=== PATIENT | male | born 1970 | race Two or more races ===

== ENCOUNTER 2016-04-07 14:40 | Emergency (ER) | payer MEDICAID ==
[2016-04-07 15:02] VITALS: RESP 16
--- NOTE | 2016-04-07 15:35 | EDPHY ---
H & P Smoking Status: Never smoked Time Seen by Provider: 04/07/16 15:03 HPI/ROS: CHIEF COMPLAINT: Left knee injury HISTORY OF PRESENT ILLNESS: 45-year-old male presents to the emergency department by private vehicle with pain in his left knee. The patient states that he was jumping down from the porch and slipped on some ice and subsequently hyperextended his left knee. He now has diffuse pain with his left knee is unable to fully extend or fully flex his left knee without severe pain. He denies hitting his head or losing consciousness or any other injuries. ROS: Denies numbness or tingling in his toes, pain in the left ankle or hip. Denies head injury, neck or back pain. (Donna Bess) Past Medical/Surgical History: Orthopedic surgery (Donna Bess) Social History: Single. 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 (Donna Bess) Physical Exam: Left knee reveals no effusion. No abrasion, ecchymosis or other signs of trauma. Normal sensation to light touch with normal 2 point discrimination. Unable to fully extend his left knee secondary to pain. He is able to flex to about nearly 45 before he is limited by pain. He has pain with palpation diffusely to the anterior aspect of the left knee. Unable to assess ligament stability given his level of pain. Left ankle is nontender. Full range of motion of the left ankle. Full range of motion of the left hip. Left calf is nontender. Achilles tendon is intact. (Donna Bess) Constitutional: Initial Vital Signs Temperature (C) 37.1 C 04/07/16 14:59 Heart Rate 87 04/07/16 14:59 Respiratory Rate 16 04/07/16 14:59 Blood Pressure 119/83 H 04/07/16 14:59 O2 Sat (%) 93 04/07/16 14:59 O2 Delivery Mode Room Air Allergies/Adverse Reactions: No Known Allergies Allergy (Verified 04/07/16 14:59) Home Medications: Medication Instructions Recorded NK [No Known Home Meds] 04/07/16 MDM/Departure - MDM Diagnostics: X-rays of the left knee reveal no fractures. This is reviewed by myself the PAC system as well as by the radiologist. (Donna Bess) Procedures: Patient was placed in straight leg knee immobilizer and examined post application in good placement with normal [employer]. (Donna Bess) ED Course/Re-evaluation: 45-year-old male presents to the emergency department with left knee pain. X- rays reveal no fractures. He was placed in straight leg knee immobilizer and given orthopedic referral. (Donna Bess) Differential Diagnosis: Including but not limited to fracture, dislocation, contusion, sprain (Donna Bess) - Depart Disposition: Home, Routine, Self-Care Clinical Impression: Sprain of left knee Condition: Good Instructions: Knee Sprain (ED) Additional Instructions: Straight leg knee immobilizer for comfort and support. Ibuprofen 600 mg every 8 hours as needed for pain. Weightbear as tolerated. Return if you developed numbness or tingling in your toes, pain in left ankle or left calf, or if you feel worse in any way. Referrals: Alessandro Harris MD [Medical Doctor] - As per Instructions (Orthopedic surgeon on-call)
--- NOTE | 2016-04-07 15:47 | DX ---
Left knee 5 views History: Jumped off ledge, hyperextending the knee, pain. Comparison: None available. Findings: No fracture is identified. Alignment is normal. Bone mineralization is normal. There is no significant degenerative change. There is a tiny joint effusion. Impression: No acute osseous findings.
[2016-04-07 16:03] VITALS: BP 132/89; PULSE 82; TEMP 97.9; O2SAT 94
== END 2016-04-07 16:03 | disposition home or self-care (01) ==
DX: S83.92XA Sprain of unspecified site of left knee, initial encounter (principal); W18.49XA Other slipping, tripping and stumbling without falling, initial encounter; Y92.008 Other place in unspecified non-institutional (private) residence as the place of occurrence of the external cause; Y93.89 Activity, other specified; R07.9 Chest pain, unspecified; I10 Essential (primary) hypertension

== ENCOUNTER 2016-10-08 09:52 | Emergency (ER) | payer MEDICAID ==
[2016-10-08 09:55] VITALS: RESP 16
[2016-10-08] MEDS ORDERED: methylPREDNISolone SOD SUCC 125 MG/2 ML VIAL IVP ONE (10:11)
[2016-10-08] MEDS ORDERED: RANITIDINE 50 MG/2 ML VIAL IVP ONE (10:11)
--- NOTE | 2016-10-08 11:06 | EDPHY ---
H & P Time Seen by Provider: 10/08/16 10:11 HPI/ROS: HPI Wasp sting to right hand. 46-year-old male by private vehicle. He has an allergy to bee stings. He carries an EpiPen because of this. Was at work, doing construction maintenance. He was moving some pipes when several wasps flew out of 1 of the pipes and stung him in the right hand in [address]. He immediately administered his 300 mcg EpiPen to his right thigh. He came to the emergency department because of his previous allergies. He has not had any difficulty breathing, difficulty swallowing. No sensation of his throat swelling or closing. He complains of some mild swelling to his right hand. He is right- hand dominant. No other complaints. ROS: Constitutional: No fever, no chills. As above. Eyes: No discharge. No changes in vision. ENT: No sore throat. No nasal congestion or rhinorrhea. As above. Respiratory: No cough. No shortness of breath. Cardiac: No chest pain, no palpitations. Gastrointestinal: No abdominal pain, no vomiting, no diarrhea. Genitourinary: No hematuria. No dysuria or increased frequency with urination. Musculoskeletal: No back pain. As above. No neck pain. No myalgias or arthralgias. Skin: No rashes. Neurological: No headache. No focal weakness or altered sensation. Past medical history: Right knee surgery. As above. Social history: No alcohol. Nonsmoker. Physical Exam: General Appearance: Alert, no distress. This patient is responding to questions appropriately and in full sentences. This patient appears well- hydrated and well-nourished. Eyes: Pupils equal and round no pallor or injection. No lid edema, erythema or injection. No angioedema. ENT, Mouth: Mucous membranes are moist. The pharyngeal tissues are unremarkable. No edema or swelling. No asymmetry suggestive of abscess. No erythema or exudates. Respiratory: There are no retractions, lungs are clear to auscultation with good air movement bilaterally. Cardiovascular: Regular rate and rhythm. No murmur. Neurological: Motor sensory function is grossly intact. Cranial nerves are normal. Gait is normal. Skin: Warm and dry, no rashes. Examination of the right hand, no significant swelling or edema. Small sting armen on proximal radial aspect index finger and base of ring finger. No associated erythema or warmth. No ecchymosis. Right hand neurovascularly intact. Musculoskeletal: Neck is supple and nontender. Extremities are symmetrical. All joints range without pain or impingement. Psychiatric: No agitation. No depression. Database: EKG: Imaging: Procedures: Emergency department course: IV placed per triage. Patient administered 125 mg of IV Solu-Medrol, 50 mg of IV ranitidine and 50 mg of IV Benadryl. 11:05 a.m., patient re-evaluated. He is completely asymptomatic. Examination of his right hand is unremarkable. No swelling/edema. No erythema or discoloration. Repeat pharyngeal exam is normal. Repeat pulmonary exam normal. He feels comfortable going home and I feel he is safe for discharge. I will prescribe him a short course of oral steroids as well as continued antihistamines over the next couple of days. Return to emergency department precautions and follow-up in discussed with him. All of his questions were answered. He was discharged in good condition. Differential Diagnosis: The differential diagnosis on this patient includes but is not limited to insect bite, allergic reaction. Anaphylaxis, angioedema unlikely. This represents a partial list of diagnoses considered. These considerations are based on history, physical exam, past history, reassessment and diagnostic testing. Smoking Status: Never smoked Constitutional: Initial Vital Signs Temperature (C) 36.9 C 10/08/16 09:54 Heart Rate 91 10/08/16 09:54 Respiratory Rate 16 10/08/16 09:54 Blood Pressure 112/94 H 10/08/16 09:54 O2 Sat (%) 97 10/08/16 09:54 O2 Delivery Mode Room Air Allergies/Adverse Reactions: bee pollen Allergy (Verified 10/08/16 09:56) Home Medications: Medication Instructions Recorded Famotidine [Pepcid] 40 mg PO BID #12 tab 10/08/16 diphenhydrAMINE [Benadryl 50 MG 50 mg PO Q4 #7 cap 10/08/16 (*)] predniSONE [prednisone 20mg (RX)] 60 mg PO DAILY #9 tab 10/08/16 Medical Decision Making - Data Points Medications Given: Discontinued Medications Diphenhydramine HCl (Benadryl Injection) 50 mg IVP EDNOW ONE Stop: 10/08/16 10:12 Last Admin: 10/08/16 10:15 Dose: 50 mg Methylprednisolone Sodium Succinate (Solu-Medrol) 125 mg IVP EDNOW ONE Stop: 10/08/16 10:12 Last Admin: 10/08/16 10:15 Dose: 125 mg Ranitidine HCl (Zantac) 50 mg IVP EDNOW ONE Stop: 10/08/16 10:12 Last Admin: 10/08/16 10:15 Dose: 50 mg Departure - Departure Disposition: Home, Routine, Self-Care Clinical Impression: Wasp sting, Allergic reaction Condition: Good Instructions: Insect Bite or Sting (ED), General Allergic Reaction (ED) Additional Instructions: Read and follow provided instructions. Follow-up with your primary care physician tomorrow for re-evaluation as needed. Take medication as prescribed. Return to the emergency department for swelling of your right hand or discoloration in right hand, difficulty breathing, any sensation of swelling or tightness in throat or other serious concerns. Prescriptions: diphenhydrAMINE [Benadryl 50 MG (*)] 50 mg PO Q4 #7 cap Famotidine [Pepcid] 40 mg PO BID #12 tab predniSONE [prednisone 20mg (RX)] 60 mg PO DAILY #9 tab
[2016-10-08 11:55] VITALS: BP 113/74; PULSE 86; TEMP 97.9; O2SAT 94
== END 2016-10-08 11:55 | disposition home or self-care (01) ==
DX: T63.461A Toxic effect of venom of wasps, accidental (unintentional), initial encounter (principal)
CPT/HCPCS: 96374; J1200; J2780